=== PATIENT | female | born 1945 | race Caucasian/White ===

== ENCOUNTER 2022-02-08 09:36 | Outpatient (REF) | payer MEDICARE, SELFPAY ==
[2022-02-08 10:50] LABS: Basophils Absolute Auto 0.01 K/uL (0.00-0.30); Basophils Percent Auto 0.2 % (0.0-3.0); Eosinophils Absolute Auto 0.38 K/uL (0.00-0.50); Eosinophils Percent Auto 6.6 % (0.0-7.0); Hematocrit 39.5 % (33.0-51.0); Hemoglobin* 12.4 gm/dL (12.0-16.0); Lymphocytes Absolute Auto 1.44 K/uL (0.90-2.90); Lymphocytes Percent Auto 24.9 % (20-44); Mean Corpuscular HGB Conc 31 gm/dL (32-36); Mean Corpuscular Hemoglobin 30 pg (26-34); Mean Corpuscular Volume 94 fL (80-100); Monocytes Percent Auto 6.6 % (0.0-11.0); Neutrophils Absolute Auto 3.57 K/uL (1.7-7.0); Neutrophils Percent Auto 61.7 % (42.0-72.0); Platelet Count* 347 K/uL (140-440); RDW Coefficient of Variation % 12.3 % (11.5-15.5); Red Blood Count 4.21 m/uL (4.00-5.20); White Blood Count* 5.78 K/uL (4.50-11.00)
[2022-02-08 11:04] LABS: Slide Review Reflex No
[2022-02-08 11:17] LABS: Chloride* 105 mmol/L (96-114); Potassium* 4.3 mmol/L (3.6-5.1); Sodium* 135 mmol/L (135-149); Vitamin D 25 Hydroxy* 52 ng/mL (30-80)
[2022-02-08 11:19] LABS: Cholesterol* 186 mg/dL (90-199)
[2022-02-08 11:20] LABS: Blood Urea Nitrogen* 19 mg/dL (7-30); Calcium* 8.7 mg/dL (8.4-10.6); Carbon Dioxide* 22 mmol/L (20-32); Creatinine* 0.8 mg/dL (0.5-1.5); Estimated Glomerular Filt Rate 76 ml/min; Glucose* 112 mg/dL (60-115); HDL Cholesterol* 39 mg/dL (>=50); LDL Cholesterol Calculated 124 mg/dL (<100); Triglycerides* 113 mg/dL (40-149)
== END 2022-02-08 09:37 | disposition home or self-care (01) ==
LOC: NPINS 09:36
PROVIDERS: PCP Family Medicine; Visit Provider Nurse Practitioner Gerontology
DX: G36.0 Neuromyelitis optica [Devic] (principal); R82.998 Other abnormal findings in urine; N32.9 Bladder disorder, unspecified; Z13.6 Encounter for screening for cardiovascular disorders; Z13.21 Encounter for screening for nutritional disorder
CPT/HCPCS: 80048; 80061; 82306; 85025

== ENCOUNTER 2022-03-16 14:32 | Outpatient (REF) | payer MEDICARE, SELFPAY ==
[2022-03-16 15:10] LABS: Appearance Urine Slightly Cloudy (Clear); Bilirubin Urine Negative (Negative); Blood Urine 2+ (Negative); Color Urine Yellow (Yellow); Glucose Urine Negative (Negative); Ketones Urine Negative (Negative); Leukocyte Esterase Urine 3+ (Negative); Nitrite Urine Positive (Negative); Protein Urine 1+ (Negative)
[2022-03-16 15:29] LABS: WBC Urine 50-100 (0-5)
[2022-03-16 15:30] LABS: Bacteria Urine Many; Calcium Oxalate Crystals Urine Few; Squamous Epithelial Cell Urine Few (None-Few)
== END 2022-03-16 14:33 | disposition home or self-care (01) ==
LOC: NPINS 14:32
PROVIDERS: Visit Provider Urology
DX: R82.998 Other abnormal findings in urine (principal); N32.9 Bladder disorder, unspecified
CPT/HCPCS: 81003; 81015; 87086; 87186

== ENCOUNTER 2022-04-29 15:44 | Emergency (ER) | payer MEDICARE, SELFPAY ==
[2022-04-29 15:59] VITALS: BP 129/82; PULSE 67; TEMP 36.1; O2SAT 96; BMI 20.6
[2022-04-29 16:00] VITALS: BP 129/82
--- NOTE | 2022-04-29 17:25 | ED_ITS ---
HPI - General Adult General Date Seen: 04/29/22 Chief complaint: Urogenital Problems, Female Stated complaint: Trouble Urinating Time Seen by Provider: 04/29/22 16:06 Source: patient and family History of Present Illness HPI narrative: Patient is a 76-year-old woman who lives at [facility], here with her daughter for evaluation of decreased urination. Patient herself says she had really noticed anything, with the staff at the facility have noticed that she had urinated since yesterday afternoon. Her daughter says she normally needs some encouragement to urinate, she does not necessarily notice on her own. Her will often remind her, and also will clean up if she has an accident in bed. Her has been in the hospital for the last 4 days with pneumonia however, so that has not been happening, and also apparently he helps remind her to drink as well so she probably has not been drinking as much in the way is fluids. She denies any abdominal pain. She has not had any fevers, dysuria, hematuria reported. No previous problems with urinary retention. No known kidney disease. She did just have a recent bladder biopsy in March (results were benign), but did not have any difficulty urinating after the catheter was removed. Related Data Home Medications Medication Instructions Recorded Confirmed aspirin 81 mg tablet,delayed 81 mg PO DAILY 04/29/22 04/29/22 release (Adult Aspirin Regimen) atenolol 50 mg tablet 50 mg PO DAILY 04/29/22 04/29/22 gabapentin 100 mg capsule 100 mg PO TID 04/29/22 04/29/22 sertraline 50 mg tablet 50 mg PO DAILY 04/29/22 04/29/22 tramadol 50 mg tablet 50 mg PO DAILY 04/29/22 04/29/22 Allergies Allergy/AdvReac Type Severity Reaction Status Date / Time ciprofloxacin Allergy Unknown Verified 04/29/22 16:03 citalopram Allergy Unknown Verified 04/29/22 16:03 [facility] Social History Smoking Status: Never smoker Do you use any of these nicotine containing products: None Second hand tobacco smoke exposure: No How often do you have a drink containing alcohol: never How often do you have six or more drinks on one occasion: Never AUDIT-C Alcohol total score: 0 Non-prescribed substance use: denies use Exam Narrative: Exam Narrative: Vital signs as noted above. In general, an alert, well-appearing patient. Appears comfortable. Head: Normocephalic, atraumatic. Eyes: Pupils are equal reactive. Extraocular movements are full. Conjunctivae are normal. ENT: Mucous membranes are moist. Throat is normal. Neck: Supple without lymphadenopathy. Heart: Regular rate and rhythm. No murmur or rub. Lungs: Clear bilaterally. No increased work of breathing, crackles or wheezes. Abdomen: Soft and nontender. No organomegaly. No masses, I do not feel a distended bladder. Extremities: Well perfused. No edema. No calf tenderness. Pulses intact. Neurologic: Patient is alert and oriented to person and place. Speech is fluent. Face is symmetric. Moves all extremities equally. Affect: Normal. Skin: Warm and dry. Well perfused. Const: Vital Signs, click to edit/add: Vital Signs - 24 hr 04/29/22 16:00 04/29/22 15:59 04/29/22 19:05 Temperature 96.9 F L Pulse Rate [Right Pulse Oximeter] 67 61 Blood Pressure [Le ft Upper Arm] 129/82 129/82 148/78 H Pulse Oximetry 96 95 Oxygen Delivery Me thod Room Air Room Air Documenting provider has reviewed patient's vital signs: yes Course Course Hospital Course: We initially checked a bladder scan this showed 247 mL of urine. This suggests that she does not have urinary retention but decreased production for some reason. We will go ahead and check a basic metabolic panel and get a creatinine to rule out acute kidney injury, give her some fluids in case she is dehydrated. We have a cath UA pending as well to look for infection and check urine concentration. Blood work is reassuring. Her creatinine is 0.8. CBC shows normal white blood cell count. CRP is normal. Urinalysis by catheterization shows 10-25 red cells and 10-25 white blood cells. Trace ketones, 3+ blood. There is also 2+ bilirubin on the dip, which is probably factitious, but I will add on a liver function panel just to be on the safe side. I gave her a L of normal saline here. Her daughter says that she has been talking with her more and she now admits that she has been trying to avoid incontinence in the bed by decreasing her fluid intake. I suspect a lot of her symptoms are due to dehydration, but she does have increased red cells and white cells on a cath urine specimen. We talked about whether to treat this with antibiotics and discontinue those if the urine culture is negative verses await the urine culture. Ultimately they would prefer to treat with antibiotics initially, so will go ahead and put her on some Keflex. Return for worsening symptoms such as fever or vomiting. Otherwise, she understands that she does need to make sure that she is staying hydrated even if that means that she has some urinary incontinence, staff will help her while her is hospitalized. LFTs are normal. Vital Signs Vital signs: Initial Vital Signs Temperature 96.9 F L 04/29/22 15:59 Temperature Source Temporal Artery Scan 04/29/22 15:59 Pulse Rate 67 04/29/22 15:59 Blood Pressure 129/82 04/29/22 15:59 Blood Pressure Mean 97 04/29/22 15:59 Blood Pressure Position Supine 04/29/22 15:59 Pulse Oximetry 96 04/29/22 15:59 Oxygen Delivery Method 04/29/22 15:59 Vital Signs Temperature 96.9 F L 04/29/22 15:59 Pulse Rate 67 04/29/22 15:59 Blood Pressure 129/82 04/29/22 15:59 Pulse Oximetry 96 04/29/22 15:59 Oxygen Delivery Method 04/29/22 15:59 Temperature 96.9 F L 04/29/22 15:59 Pulse Rate 61 04/29/22 19:05 Blood Pressure 148/78 H 04/29/22 19:05 Pulse Oximetry 95 04/29/22 19:05 Oxygen Delivery Method 04/29/22 19:05 Medical Decision Making Lab Data Labs: Lab Results 04/29/22 04/29/22 04/29/22 Range/Units 16:50 16:50 16:50 WBC 5.02 (4.50-11.00) K/uL RBC 4.40 (4.00-5.20) m/uL Hgb 12.9 (12.0-16.0) gm/dL Hct 39.6 (33.0-51.0) % MCV 90 (80-100) fL MCH 29 (26-34) pg MCHC 33 (32-36) gm/dL RDW Coeff of Paul 14.4 (11.5-15.5) % Plt Count 305 (140-440) K/uL Neut % (Auto) 67.7 (42.0-72.0) % Lymph % (Auto) 20.7 (20-44) % [place] % (Auto) 9.0 (0.0-11.0) % Eos % (Auto) 1.8 (0.0-7.0) % Baso % (Auto) 0.6 (0.0-3.0) % Neut # (Auto) 3.40 (1.7-7.0) K/uL Lymph # (Auto) 1.04 (0.90-2.90) K/uL [place] # (Auto) 0.50 (0.00-0.90) K/UL Eos # (Auto) 0.09 (0.00-0.50) K/uL Baso # (Auto) 0.03 (0.00-0.30) K/uL Abs Immat Gran (auto) 0.01 (0.00-0.30) K/uL Sodium 136 (135-149) mmol/L Potassium 3.6 (3.6-5.1) mmol/L Chloride 101 (96-114) mmol/L Carbon Dioxide 26 (20-32) mmol/L BUN 15 (7-30) mg/dL Creatinine 0.8 (0.5-1.5) mg/dL Estimated Creat Clear 41.13 Estimated GFR 76 ml/min Glucose 109 (60-115) mg/dL Calcium 9.1 (8.4-10.6) mg/dL Total Bilirubin 0.5 (0.1-1.5) mg/dL Direct Bilirubin 0.3 (0.0-0.5) mg/dL AST 43 H (12-35) U/L ALT 31 (4-35) U/L Alkaline Phosphatase 126 (40-150) U/L C-Reactive Protein 0.8 (0.5-1.0) mg/dL Total Protein 6.5 (6.0-8.3) g/dL Albumin 3.5 (3.3-5.0) g/dL Urine Color (Yellow) Urine Appearance (Clear) Urine pH (5.0-8.5) Ur Specific [place] (1.000-1.030) Urine Protein (Negative) Urine Glucose (UA) (Negative) Urine Ketones (Negative) Urine Blood (Negative) Urine Nitrite (Negative) Urine Bilirubin (Negative) Urine Urobilinogen (0.2-1.0) Ur Leukocyte Esterase (Negative) Urine RBC (0-2) Urine WBC (0-5) Ur Squamous Epith Cells (None-Few) Urine Bacteria (None) 04/29/22 Range/Units 17:50 WBC (4.50-11.00) K/uL RBC (4.00-5.20) m/uL Hgb (12.0-16.0) gm/dL Hct (33.0-51.0) % MCV (80-100) fL MCH (26-34) pg MCHC (32-36) gm/dL RDW Coeff of Paul (11.5-15.5) % Plt Count (140-440) K/uL Neut % (Auto) (42.0-72.0) % Lymph % (Auto) (20-44) % [place] % (Auto) (0.0-11.0) % Eos % (Auto) (0.0-7.0) % Baso % (Auto) (0.0-3.0) % Neut # (Auto) (1.7-7.0) K/uL Lymph # (Auto) (0.90-2.90) K/uL [place] # (Auto) (0.00-0.90) K/UL Eos # (Auto) (0.00-0.50) K/uL Baso # (Auto) (0.00-0.30) K/uL Abs Immat Gran (auto) (0.00-0.30) K/uL Sodium (135-149) mmol/L Potassium (3.6-5.1) mmol/L Chloride (96-114) mmol/L Carbon Dioxide (20-32) mmol/L BUN (7-30) mg/dL Creatinine (0.5-1.5) mg/dL Estimated Creat Clear Estimated GFR ml/min Glucose (60-115) mg/dL Calcium (8.4-10.6) mg/dL Total Bilirubin (0.1-1.5) mg/dL Direct Bilirubin (0.0-0.5) mg/dL AST (12-35) U/L ALT (4-35) U/L Alkaline Phosphatase (40-150) U/L C-Reactive Protein (0.5-1.0) mg/dL Total Protein (6.0-8.3) g/dL Albumin (3.3-5.0) g/dL Urine Color [place] A (Yellow) Urine Appearance Slightly Cloudy A (Clear) Urine pH 5.5 (5.0-8.5) Ur Specific [place] 1.025 (1.000-1.030) Urine Protein 1+ A (Negative) Urine Glucose (UA) Negative (Negative) Urine Ketones Trace A (Negative) Urine Blood 3+ A (Negative) Urine Nitrite Negative (Negative) Urine Bilirubin 2+ A (Negative) Urine Urobilinogen 1.0 (0.2-1.0) Ur Leukocyte Esterase 1+ A (Negative) Urine RBC 10-25 A (0-2) Urine WBC 10-25 A (0-5) Ur Squamous Epith Cells Few (None-Few) Urine Bacteria None (None) Discharge Plan Discharge Clinical Impression: Urinary tract infection, Dehydration Patient Disposition: Xfer Other Discharge Location: [facility] Living Condition: Improved Instructions: Dehydration (ED) Additional Instructions: Return for worsening symptoms such as abdominal pain, fever, vomiting. Make sure to keep up with hydration. Antibiotic as prescribed, if the urine culture is negative, this can be discontinued. Prescriptions: No Action atenolol 50 mg tablet 50 mg PO DAILY gabapentin 100 mg capsule 100 mg PO TID sertraline 50 mg tablet 50 mg PO DAILY tramadol 50 mg tablet 50 mg PO DAILY aspirin [Adult Aspirin Regimen] 81 mg tablet,delayed release (DR/EC) 81 mg PO DAILY Stand Alone Forms: [employer] Info Instructions
[2022-04-29 17:28] LABS: Basophils Absolute Auto 0.03 K/uL (0.00-0.30); Basophils Percent Auto 0.6 % (0.0-3.0); Eosinophils Absolute Auto 0.09 K/uL (0.00-0.50); Eosinophils Percent Auto 1.8 % (0.0-7.0); Hematocrit 39.6 % (33.0-51.0); Hemoglobin* 12.9 gm/dL (12.0-16.0); Immature Granulocytes Abs Auto 0.01 K/uL (0.00-0.30); Lymphocytes Absolute Auto 1.04 K/uL (0.90-2.90); Lymphocytes Percent Auto 20.7 % (20-44); Mean Corpuscular HGB Conc 33 gm/dL (32-36); Mean Corpuscular Hemoglobin 29 pg (26-34); Mean Corpuscular Volume 90 fL (80-100); Neutrophils Percent Auto 67.7 % (42.0-72.0); Platelet Count* 305 K/uL (140-440); RDW Coefficient of Variation % 14.4 % (11.5-15.5); White Blood Count* 5.02 K/uL (4.50-11.00)
[2022-04-29 17:40] LABS: Chloride* 101 mmol/L (96-114); Sodium* 136 mmol/L (135-149)
[2022-04-29 17:41] LABS: Potassium* 3.6 mmol/L (3.6-5.1)
[2022-04-29 17:43] LABS: Creatinine* 0.8 mg/dL (0.5-1.5); Est. Creatinine Clearance* 41.13; Estimated Glomerular Filt Rate 76 ml/min
[2022-04-29 17:44] LABS: Blood Urea Nitrogen* 15 mg/dL (7-30); Carbon Dioxide* 26 mmol/L (20-32); Glucose* 109 mg/dL (60-115)
[2022-04-29 17:45] LABS: Calcium* 9.1 mg/dL (8.4-10.6)
[2022-04-29 17:47] LABS: C Reactive Protein* 0.8 mg/dL (0.5-1.0)
[2022-04-29 18:09] LABS: Appearance Urine Slightly Cloudy (Clear); Bilirubin Urine 2+ (Negative); Blood Urine 3+ (Negative); Color Urine Amber (Yellow); Glucose Urine Negative (Negative); Ketones Urine Trace (Negative); Leukocyte Esterase Urine 1+ (Negative); Nitrite Urine Negative (Negative); Protein Urine 1+ (Negative); Specific Gravity Urine 1.025 (1.000-1.030); pH Urine 5.5 (5.0-8.5)
[2022-04-29 18:30] LABS: Slide Review Reflex No
[2022-04-29 18:31] LABS: Squamous Epithelial Cell Urine Few (None-Few)
[2022-04-29 18:57] LABS: Albumin* 3.5 g/dL (3.3-5.0)
[2022-04-29 19:00] LABS: Alkaline Phosphatase* 126 U/L (40-150); Aspartate Amino Transferase* 43 U/L (12-35); Bilirubin Direct* 0.3 mg/dL (0.0-0.5); Bilirubin Total* 0.5 mg/dL (0.1-1.5); Total Protein* 6.5 g/dL (6.0-8.3)
[2022-04-29 19:01] LABS: Alanine Aminotransferase* 31 U/L (4-35)
[2022-04-29 19:05] VITALS: BP 148/78; PULSE 61; O2SAT 95
--- NOTE | 2022-04-30 11:48 | ED.NURSE ---
Francisco called to request written orders for antibiotics. Per Dr Gamez written orders faxed over for keflex 500mg po tid for 7 days.
== END 2022-04-29 19:22 | disposition other institution (70) ==
PROVIDERS: Emergency Provider Emergency Medicine; PCP Family Medicine
DX: N39.0 Urinary tract infection, site not specified (principal); E86.0 Dehydration
CPT/HCPCS: 36415; 51701; 80048; 80076; 81001; 85025; 86140; 87086; 99283; 99284